=== PATIENT | female | born 2000 | race African-American/Black ===

== ENCOUNTER → 2023-11-17 | Outpatient (REF) | payer BC, OTHER | LOC: M LAB REF 12:23 | PROVIDERS: ATTEND Nurse Practitioner Family | DX: R30.0 Dysuria (principal) ==

== ENCOUNTER 2024-01-04 06:11 | Emergency (ER) | payer BC, OTHER ==
[~2024-01-04] VITALS: Ht 167.6 cm; Wt 69.2 kg
[2024-01-04 07:20] LABS: BASO % 0.3 % (0.0-1.0); EOS # 0.3 10^3/uL (0.0-0.5); EOS % 3.1 % (0.0-3.0); HEMATOCRIT 38.6 % (36.0-47.0); HEMOGLOBIN 12.9 g/dl (12.0-15.5); LYMPH # 2.5 10^3/uL (1.5-5.0); LYMPH % 28.5 % (24.0-44.0); MEAN CORPUSCULAR HEMOGLOBIN 29.9 pg (27.0-33.0); MEAN CORPUSCULAR HGB CONC 33.4 g/dl (32.0-36.5); MEAN CORPUSCULAR VOLUME 89.4 fl (80.0-96.0); MONO # 0.7 10^3/uL (0.0-0.8); MONO % 7.7 % (2.0-8.0); NEUTROPHILS # 5.3 10^3/uL (1.5-8.5); NEUTROPHILS % 60.1 % (36.0-66.0); PLATELET COUNT, AUTOMATED 275 10^3/uL (150-450); RED BLOOD COUNT 4.32 10^6/uL (4.00-5.40); WHITE BLOOD COUNT 8.8 10^3/uL (4.0-10.0)
[2024-01-04 07:35] LABS: LIPASE 34 U/L (12-53)
[2024-01-04 07:36] LABS: HCG, SERUM QUALITATIVE NEGATIVE (NEGATIVE)
[2024-01-04 07:37] LABS: ALBUMIN 4.3 G/DL (3.2-5.2); ALKALINE PHOSPHATASE 56 U/L (46-116); ALT/SGPT < 9 U/L (7.0-40); AST/SGOT < 8 U/L (<34); BILIRUBIN,DIRECT 0.3 MG/DL (<0.4); BILIRUBIN,TOTAL 0.9 MG/DL (0.3-1.2); BLOOD UREA NITROGEN 8 MG/DL (9-23); CALCIUM LEVEL 10.3 MG/DL (8.5-10.1); CARBON DIOXIDE LEVEL 22 MMOL/L (20-31); CHLORIDE LEVEL 108 MMOL/L (98-107); CREATININE FOR GFR 0.76 MG/DL (0.55-1.30); GLOMERULAR FILTRATION RATE > 60.0 (>60); GLUCOSE, FASTING 99 MG/DL (60-100); POTASSIUM SERUM 3.8 MMOL/L (3.5-5.1); SODIUM LEVEL 139 MMOL/L (136-145); TOTAL PROTEIN 7.8 G/DL (5.7-8.2)
[2024-01-04] MEDS ORDERED: FLOM0.4C39 PO (09:50)
[2024-01-04] MEDS ORDERED: ONDA-282 PO (09:50)
[2024-01-04 10:11] VITALS: BP 113/67; TEMP 97.6; O2SAT 100
== END 2024-01-04 10:22 | disposition home or self-care (01) ==
LOC: M ED 06:11
DX: N20.1 Calculus of ureter (principal); Z98.84 Bariatric surgery status; Z88.0 Allergy status to penicillin

== ENCOUNTER → 2024-03-03 | Outpatient (REF) | payer BC ==
[~2024-03-03] MED LIST: FLOM0.4C39 PO; ONDA-282 PO
[2024-03-03 13:12] LABS: AMORPHOUS SEDIMENT SMALL (NEGATIVE); APPEARANCE, URINE TURBID (CLEAR); BACTERIA, URINE AUTO 1+ (NEGATIVE); BILIRUBIN, URINE AUTO NEGATIVE (NEGATIVE); BLOOD, URINE BLOOD NEGATIVE (NEGATIVE); COLOR, URINE YELLOW (YELLOW); GLUCOSE, URINE (UA) AUTO NEGATIVE (NEGATIVE); KETONE, URINE AUTO NEGATIVE (NEGATIVE); LEUKOCYTE ESTERASE, URINE AUTO 1+ (NEGATIVE); MUCUS, URINE LARGE (NEGATIVE); NITRITE, URINE AUTO NEGATIVE (NEGATIVE); PROTEIN, URINE AUTO 1+ mg/dL (NEGATIVE); RBC, URINE AUTO 2 /HPF (0-3); SPECIFIC GRAVITY URINE AUTO 1.026 (1.002-1.035); SQUAMOUS EPITHELIAL CELL UR AU 12 /HPF (0-6); WBC, URINE AUTO 15 /HPF (0-3)
== END ==
LOC: M SMT 12:35
PROVIDERS: ATTEND Nurse Practitioner Family
DX: R30.0 Dysuria (principal)

== ENCOUNTER 2024-05-27 15:12 | Emergency (ER) | payer BC ==
[~2024-05-27] VITALS: Ht 167.6 cm; Wt 54.2 kg
[2024-05-27] MEDS ORDERED: ALBU8.5H (16:06)
[2024-05-27] MEDS ORDERED: ALBU2.5V10 (16:06)
[2024-05-27 17:00] LABS: BASO % 0.4 % (0.0-1.0); EOS # 0.2 10^3/uL (0.0-0.5); EOS % 2.5 % (0.0-3.0); HEMATOCRIT 40.3 % (36.0-47.0); LYMPH # 2.4 10^3/uL (1.5-5.0); LYMPH % 27.3 % (24.0-44.0); MEAN CORPUSCULAR HEMOGLOBIN 29.8 pg (27.0-33.0); MEAN CORPUSCULAR HGB CONC 32.3 g/dl (32.0-36.5); MEAN CORPUSCULAR VOLUME 92.4 fl (80.0-96.0); MONO # 0.6 10^3/uL (0.0-0.8); MONO % 6.6 % (2.0-8.0); NEUTROPHILS # 5.6 10^3/uL (1.5-8.5); NEUTROPHILS % 62.9 % (36.0-66.0); PLATELET COUNT, AUTOMATED 319 10^3/uL (150-450); RED BLOOD COUNT 4.36 10^6/uL (4.00-5.40)
[2024-05-27 17:29] LABS: LIPASE 31 U/L (12-53)
[2024-05-27 17:32] LABS: ALBUMIN 4.2 G/DL (3.2-5.2); ALKALINE PHOSPHATASE 48 U/L (35-104); ALT/SGPT 13 U/L (7.0-40); AST/SGOT 9 U/L (<34); BILIRUBIN,DIRECT 0.2 MG/DL (<0.4); BILIRUBIN,TOTAL 0.6 MG/DL (0.3-1.2); BLOOD UREA NITROGEN 12 MG/DL (9-23); CALCIUM LEVEL 9.7 MG/DL (8.5-10.1); CARBON DIOXIDE LEVEL 28 MMOL/L (20-31); CHLORIDE LEVEL 107 MMOL/L (98-107); CREATININE FOR GFR 0.69 MG/DL (0.55-1.30); GLOMERULAR FILTRATION RATE > 60.0 (>60); GLUCOSE, FASTING 90 MG/DL (60-100); POTASSIUM SERUM 4.9 MMOL/L (3.5-5.1); SODIUM LEVEL 142 MMOL/L (136-145); TOTAL PROTEIN 7.6 G/DL (5.7-8.2)
[2024-05-27 17:37] LABS: HCG, SERUM QUALITATIVE NEGATIVE (NEGATIVE)
[2024-05-27] MEDS ORDERED: DEXTROSE 50% 50ML SYRINGE As Ordered ONE (22:41)
[2024-05-27] MEDS: DEXTROSE 50% 50ML SYRINGE IV STA (23:12)
[2024-05-27 23:50] LABS: CK-MB VALUE MASS < 1.0 NG/ML (<3.6)
[2024-05-27 23:51] LABS: CPK CREATINE PHOSPHOKINASE 38 U/L (34-145); MB/CK RELATIVE INDEX 2.63 (< OR =4)
[2024-05-28 00:26] LABS: CK-MB VALUE MASS < 1.0 NG/ML (<3.6)
[2024-05-28 00:41] LABS: CPK CREATINE PHOSPHOKINASE 34 U/L (34-145); MB/CK RELATIVE INDEX 2.94 (< OR =4)
[2024-05-28 01:28] VITALS: BP 111/57; TEMP 97.6; O2SAT 98
== END 2024-05-28 01:30 | disposition home or self-care (01) ==
LOC: M ED 15:12
DX: E16.2 Hypoglycemia, unspecified (principal); J45.909 Unspecified asthma, uncomplicated; Z98.84 Bariatric surgery status; Z88.0 Allergy status to penicillin